=== PATIENT | female | born 1995 | race Caucasian/White ===

== ENCOUNTER 2018-10-30 19:26 | Inpatient (IN) | payer OTHER ==
[2018-10-30] MEDS ORDERED: Penicillin G Potassium 5 MILLUNITS in Sodium Chloride 0.9% 50 ML IV ONE (20:09)
[2018-10-30] MEDS ORDERED: Lactated Ringers 1,000 ML IV ONE ×2 (20:09→20:45)
[2018-10-30] MEDS ORDERED: Naloxone 0.4 MG/ML SDV IVPUSH PRN (20:45)
[2018-10-30] MEDS ORDERED: Acetaminophen 325 MG Tab PO PRN (20:45)
[2018-10-30] MEDS ORDERED: Ondansetron 4 MG/2 ML SDV IV PRN (20:45)
[2018-10-30] MEDS ORDERED: Sodium Chloride 0.9% 10 ML Syringe FLUSH PRN (20:45)
[2018-10-30] MEDS ORDERED: ePHEDrine 50 MG/ML SDV IVPUSH PRN ×2 (20:45)
[2018-10-30] MEDS ORDERED: diphenhydrAMINE 50 MG/ML SDV IVPUSH PRN ×2 (20:45)
--- NOTE | 2018-10-30 20:59 | PCM.LDHP ---
L&D History of Present Illness - General Date of Service: 10/30/18 Admit Problem/Dx: Patient Status Order with Admit Dx/Problem 10/30/18 20:45 Patient Status [ADT] Routine Admission Diagnosis/Problem Admission Diagnosis/Problem - Related Data Allergies/Adverse Reactions: Allergies Allergy/AdvReac Type Severity Reaction Status Date / Time No Known Allergies Allergy Verified 10/30/18 20:05 Home Medications: Home Meds Mv-Mn/Iron/FA/Herbal/Digestive [ One Tablet] 1 each PO DAILY 10/30/18 [ History] Past Medical History [employer] History: Reports: Psychiatric History: Reports: Anxiety, Depression Social & Family History - Family History Family Medical History: Noncontributory - Tobacco Use Smoking Status *Q: Current Every Day Smoker Years of Tobacco use: 5 Packs/Tins Daily: 0.5 Used Tobacco, but Quit: No - Recreational Drug Use Recreational Drug Use: No H&P Review of Systems - Review of Systems: Review Of Systems: See Below General: Reports: No Symptoms HEENT: Reports: No Symptoms Pulmonary: Reports: No Symptoms Cardiovascular: Reports: No Symptoms Gastrointestinal: Reports: No Symptoms Genitourinary: Reports: No Symptoms Musculoskeletal: Reports: No Symptoms Skin: Reports: No Symptoms Psychiatric: Reports: No Symptoms Neurological: Reports: No Symptoms Hematologic/Lymphatic: Reports: No Symptoms Immunologic: Reports: No Symptoms L&D Exam - Exam Exam: See Below - Vital Signs Vital Signs: Last Vital Signs Temp Pulse 84 10/30/18 19:36 Resp 20 10/30/18 19:36 BP 135/74 10/30/18 19:36 Pulse Ox 97 10/30/18 19:36 Weight: 77.111 kg - OB Specific Contraction Duration (sec): 40-60 Contraction Frequency (min): irregular Contraction Intensity: Mild to Moderate Movement: Active Heart Tones: Present Heart Rate (FHR) Variability: Moderate (6-25 bmp) Presentation: Vertex - Gallego Score Gallego Score Cervix Position: Anterior Gallego Score Consistency: Soft Gallego Score Effacement: >80% Gallego Score Dilation: 3-4 cm Gallego Score Infant's Station: -1 ,0 Gallego Score Total: 11 - Exam General: Alert, Oriented, Cooperative HEENT: PERRLA, Conjunctiva Clear, EACs Clear, EOMI, Hearing Intact, Mucosa Moist & [place], Nares Patent, Normal Nasal Septum, Posterior Pharynx Clear, TMs Clear Neck: Supple, Trachea Midline Lungs: Clear to Auscultation, Normal Respiratory Effort Cardiovascular: Regular Rate, Regular Rhythm GI/Abdominal Exam: Normal Bowel Sounds, Soft, Non-Tender, No Organomegaly, No Distention, No Abnormal Bruit, No Mass, Pelvis Stable Rectal Exam: Normal Exam, Normal Rectal Tone Genitourinary: Normal external exam, Normal bimanual exam, Normal speculum exam Back Exam: Normal Inspection, Full Range of Motion Extremities: Normal Inspection, Normal Range of Motion, Non-Tender, No Pedal Edema, Normal Capillary Refill Skin: Warm, Dry, Intact Neurological: Cranial Nerves Intact, Reflexes Equal Bilateral Psychiatric: Alert, Normal Affect, Normal Mood - Patient Data Lab Results Last 24 hrs: Laboratory Results - last 24 hr 10/30/18 Range/Units 19:37 Membrane Rupture Positive H (NEGATIVE) - Problem List (1) SNOMED Code(s): 02641509 ICD Code: Z34.90 - ENCNTR FOR SUPRVSN OF NORMAL , UNSP, UNSP TRIMESTER Status: Acute Current Visit: Yes Qualifiers: Weeks of gestation: 35 weeks Qualified Code(s): Z3A.35 - 35 weeks gestation of (2) Premature rupture of membranes SNOMED Code(s): 60070709 ICD Code: O42.90 - FLORENTIN ROM, 7TH0 BETW RUPT & ONST LABR, UNSP WEEKS OF GEST Status: Acute Priority: High Current Visit: Yes Qualifiers: PROM gestational age: -third trimester (3) Premature labor Status: Acute Current Visit: Yes Qualifiers: labor trimester: third trimester (4) GBS screening not performed SNOMED Code(s): 127077754 ICD Code: AWO8133 - Status: Acute Current Visit: Yes (5) Labor established SNOMED Code(s): 34102447 ICD Code: OQV2432 - Status: Acute Current Visit: Yes Problem List Initiated/Reviewed/Updated: Yes Orders Last 24hrs: Active Orders 24 hr Category Date Time Status Patient Status [ADT] Routine ADT 10/30/18 20:45 Active Ambulate [RC] PER UNIT ROUTINE Care 10/30/18 20:45 Active Communication Order [RC] ASDIRECTED Care 10/30/18 20:45 Active Communication Order [RC] ASDIRECTED Care 10/30/18 20:45 Active Communication Order [RC] ROUTINE Care 10/30/18 20:45 Active Communication Order [RC] ROUTINE Care 10/30/18 20:45 Active Communication Order [RC] ROUTINE Care 10/30/18 20:45 Active Dietary Supplements [RC] BIDMEALS Care 10/30/18 20:09 Active Heart Tones [RC] PER UNIT ROUTINE Care 10/30/18 20:45 Active Non Stress Test [RC] Click to Edit Care 10/30/18 20:45 Active Insert Urinary Catheter [OM.PC] ASDIRECTED Care 10/30/18 20:45 Ordered Local Anesthetic Infusion Pump [RC] ASDIRECTED Care 10/30/18 20:45 Active Notify Provider Vital Signs [RC] PRN Care 10/30/18 20:45 Active Notify Provider [RC] PRN Care 10/30/18 20:45 Active OB Check [OM.PC] Click to Edit Care 10/30/18 19:37 Ordered Oxygen Therapy [RC] ASDIRECTED Care 10/30/18 20:45 Active PCEA Epidural [RC] ASDIRECTED Care 10/30/18 20:45 Active PCEA Epidural [RC] ASDIRECTED Care 10/30/18 20:45 Active PCEA Epidural [RC] ASDIRECTED Care 10/30/18 20:46 Active Peripheral IV Care [RC] . DIRECTED Care 10/30/18 20:46 Active Pulse Oximetry [RC] ASDIRECTED Care 10/30/18 20:45 Active Up ad Verena [RC] ASDIRECTED Care 10/30/18 20:45 Active Urinary Catheter Assessment [RC] ASDIRECTED Care 10/30/18 20:46 Active VTE/DVT Education [RC] Click to Edit Care 10/30/18 20:48 Active Vital Signs [RC] PER UNIT ROUTINE Care 10/30/18 20:45 Active Vital Signs [RC] PER UNIT ROUTINE Care 10/30/18 20:45 Active CBC WITH AUTO DIFF [HEME] Urgent Lab 10/30/18 20:45 Ordered DRUG SCREEN, URINE [URCHEM] Routine Lab 10/30/18 20:45 Ordered UA W/MICROSCOPIC [URIN] Routine Lab 10/30/18 19:37 Ordered Acetaminophen [Tylenol] Med 10/30/18 20:45 Active 650 mg PO Q4H PRN Lactated Ringers [Ringers, Lactated] 1,000 ml Med 10/30/18 20:45 Active IV .BOLUS Lactated Ringers [Ringers, Lactated] 1,000 ml Med 10/30/18 21:00 Ordered IV ASDIRECTED Lactated Ringers [Ringers, Lactated] 1,000 ml [facility] 10/30/18 20:09 Active IV BOLUS Naloxone [Narcan] Med 10/30/18 20:45 Active 0.1 mg IVPUSH ASDIRECTED PRN Ondansetron [Zofran] Med 10/30/18 20:45 Active 4 mg IV Q4H PRN Oxytocin/Normal Saline [Pitocin in NS 20 Units/1,000 ML Med 10/30/18 21:00 Active ] 20 unit in 1,000 ml IV TITRATE Penicillin G Potassium [Pfizerpen] 2.5 millunits Med 10/30/18 00:00 Ordered Sodium Chloride 0.9% [Normal Saline] 50 ml IV Q4H Sodium Chloride 0.9% [Saline Flush] Med 10/30/18 20:45 Active 10 ml FLUSH ASDIRECTED PRN diphenhydrAMINE [Benadryl] Med 10/30/18 20:45 Active 25 mg IVPUSH Q6H PRN diphenhydrAMINE [Benadryl] [facility] 10/30/18 20:45 Active 50 mg IVPUSH Q6H PRN ePHEDrine [ePHEDrine sulfate] [facility] 10/30/18 20:45 Active 10 mg IVPUSH ASDIRECTED PRN ePHEDrine [ePHEDrine sulfate] [facility] 10/30/18 20:45 Active 10 mg IVPUSH ASDIRECTED PRN DVT/VTE Prophylaxis Reflex [OM.PC] Routine Oth 10/30/18 20:45 Ordered Epidural Catheter Management [OM.PC] Routine Oth 10/30/18 20:45 Ordered Epidural Catheter Management [OM.PC] Urgent Oth 10/30/18 20:45 Ordered Peripheral IV Insertion Pediatric [OM.PC] Routine Oth 10/30/18 20:45 Ordered Saline Lock Insert [OM.PC] Routine Oth 10/30/18 20:45 Ordered Resuscitation Status Routine Resus Stat 10/30/18 20:45 Ordered Medication Orders Acetaminophen (Tylenol) 650 mg PO Q4H PRN PRN Reason: Pain (Mild 1-3) and fever Diphenhydramine HCl (Benadryl) 25 mg IVPUSH Q6H PRN PRN Reason: Itching Diphenhydramine HCl (Benadryl) 50 mg IVPUSH Q6H PRN PRN Reason: Itching Ephedrine Sulfate (Ephedrine Sulfate) 10 mg IVPUSH ASDIRECTED PRN PRN Reason: Hypotension Ephedrine Sulfate (Ephedrine Sulfate) 10 mg IVPUSH ASDIRECTED PRN PRN Reason: Hypotension Lactated Ringer's (Ringers, Lactated) 1,000 mls @ 999 mls/hr IV BOLUS ONE Stop: 10/30/18 21:09 Last Admin: 10/30/18 20:24 Dose: 999 mls/hr Lactated Ringer's (Ringers, Lactated) 1,000 mls @ 999 mls/hr IV .BOLUS ONE Stop: 10/30/18 21:45 Oxytocin/Sodium Chloride (Pitocin In Ns 20 Units/1,000 Ml) 20 unit in 1,000 mls @ 6 mls/hr IV TITRATE LUISA; Protocol Penicillin G Potassium 2.5 (millunits/ Sodium Chloride) 50 mls @ 100 mls/hr IV Q4H LUISA Naloxone HCl (Narcan) 0.1 mg IVPUSH ASDIRECTED PRN PRN Reason: Oversedation Ondansetron HCl (Zofran) 4 mg IV Q4H PRN PRN Reason: Nausea/Vomiting Sodium Chloride (Saline Flush) 10 ml FLUSH ASDIRECTED PRN PRN Reason: Keep Vein Open Assessment/Plan Comment:: 10/30/2018 23 yo here at 35 2/7 gestational weeks came in to labor and delivery tonight after what she believes is SROM at 0930 earlier this am. Amnisure was positive SVE-3-4/90/-1 Caput felt, no membranes felt PPROM labor Unknown GBS Plan- Monitor for active labor Monitor FHTS PCN G for unknown GBS Pitocin per protocol to augment labor since SROM earlier this am Epidural for pain control Plan and anticipate a vaginal delivery
[2018-10-30] MEDS ORDERED: Lactated Ringers 1,000 ML IV SCH (21:00)
[2018-10-30] MEDS ORDERED: Ropivacaine 100 ML ONE (22:03)
[2018-10-30] MEDS ORDERED: Lidocaine 1% 50 ML MDV ONE (22:14)
[2018-10-30] MEDS ORDERED: ePHEDrine 50 MG/ML SDV ONE (22:16)
[2018-10-30] MEDS ORDERED: fentaNYL 100 MCG/2 ML SDV ONE (23:38)
[2018-10-31] MEDS ORDERED: Witch Hazel Medicated Pads 100/Jar TOP PRN (00:58)
[2018-10-31] MEDS ORDERED: Benzocaine 20% Top Spray 56 GM Bottle TOP PRN (00:58)
[2018-10-31] MEDS ORDERED: Docusate Sodium 100 MG Cap PO PRN (00:58)
[2018-10-31] MEDS ORDERED: Lanolin 100% Cream 40 GM Tube TOP PRN (00:58)
[2018-10-31] MEDS ORDERED: Acetaminophen 325 MG Tab, 50 Tab Bulk Bottle PO PRN (00:58)
[2018-10-31] MEDS ORDERED: Ibuprofen 200 MG Tab, 24 Tab Bulk Bottle PO PRN (00:58)
--- NOTE | 2018-10-31 01:11 | PCM.DEL ---
L & D Note - General Info Date of Service: 10/31/18 Mother's Due Date: 12/02/18 - Delivery Note Labor: Spontaneous Delivery Outcome: Livebirth Infant Delivery Method: Spontaneous Vaginal Delivery-Single Infant Delivery Mode: Spontaneous Presentation: Left Occiput Anterior (CRISTIAN) Nuchal Cord: None Anesthesia Type: Epidural Episiotomy Type: None Laceration: None Placenta: Intact, Spontaneous Cord: 3 Vessels Estimated Blood Loss: 250 Resuscitation Needed: No : Bulb Syringe, Stimulated, Warmed Score 1 min: 9 Score 5 min: 9 Second Stage Interventions: Reports: Second Nurse Assessed Progress of Descent, Second Nurse Reviewed Contraction Pattern, Second Nurse Reviewed Heart Tones, Encouragement Given, Pushing Effectively, Pushing, McRobert's Position Delivery Comments (Free Text/Narrative):: 10/31/2018 23 yo delivered a viable female infant at 35 3/7 gestational weeks on 10/31/2018 @ 0025 in CRISTIAN position over and intact perineum. was delivered and placed on prewarmed blanket on mothers abdomen, infant began to cry and pink in color, so delayed cord clamping was done for approximately 90 seconds before double clamping and cutting the cord. APGARS-9/9, weight-5lbs 1oz, length-17 inches, was covered with prewarmed blanket and brought directly skin to skin, was dried and kept warm. began to cry more vigorously and pink in color. Placenta then came spontaneous and intact with noted odor, three vessel cord noted, EBL-250ml, no lacerations noted of vagina, perineum, cervix, or rectum. Infant now remains skin to skin with mother both stable in labor and delivery room. Stages- [id number] - General Info Date of Service: 10/31/18 Functional Status: Reports: Pain Controlled - Review of Systems General: Reports: No Symptoms HEENT: Reports: No Symptoms Pulmonary: Reports: No Symptoms Cardiovascular: Reports: No Symptoms Gastrointestinal: Reports: No Symptoms Genitourinary: Reports: No Symptoms Musculoskeletal: Reports: No Symptoms Skin: Reports: No Symptoms Neurological: Reports: No Symptoms Psychiatric: Reports: No Symptoms - Patient Data Vitals - Most Recent: Last Vital Signs Temp 35.3 C 10/30/18 23:00 Pulse 87 10/30/18 23:00 Resp 18 10/30/18 23:00 BP 121/63 10/30/18 23:00 Pulse Ox 99 10/30/18 23:00 Weight - Most Recent: 77.111 kg I&O - Last 24 Hours: Intake & Output 10/30/18 10/30/18 10/31/18 14:59 22:59 06:59 Intake Total 2050 Output Total 400 Balance 2050 -400 Lab Results Last 24 Hours: Laboratory Results - last 24 hr 10/30/18 10/30/18 10/30/18 Range/Units 19:37 19:37 20:45 WBC (4.5-11.0) K/uL RBC (3.30-5.50) M/uL Hgb (12.0-15.0) g/dL Hct (36.0-48.0) % MCV (80-98) fL MCH (27-31) pg MCHC (32-36) % Plt Count (150-400) K/uL Neut % (Auto) (36-66) % Lymph % (Auto) (24-44) % [place] % (Auto) (2-6) % Eos % (Auto) (2-4) % Baso % (Auto) (0-1) % Urine Color Yellow Urine Appearance Clear Urine pH 7.0 (4.5-8.0) Ur Specific [place] 1.010 (1.008-1.030) Urine Protein Negative (NEGATIVE) mg/dL Urine Glucose (UA) Normal (NEGATIVE) mg/dL Urine Ketones Negative (NEGATIVE) mg/dL Urine Occult Blood Negative (NEGATIVE) Urine Nitrite Negative (NEGATIVE) Urine Bilirubin Negative (NEGATIVE) Urine Urobilinogen Normal (NORMAL) mg/dL Ur Leukocyte Esterase Negative (NEGATIVE) Urine RBC 0-5 (0-5) Urine WBC 0-5 (0-5) Ur Epithelial Cells Few Amorphous Sediment Not seen Urine Bacteria Not seen Urine Mucus Not seen Membrane Rupture Positive H (NEGATIVE) Urine Opiates Screen Negative (NEGATIVE) Ur Oxycodone Screen Negative (NEGATIVE) Urine Methadone Screen Negative (NEGATIVE) Ur Propoxyphene Screen Negative (NEGATIVE) Ur Barbiturates Screen Negative (NEGATIVE) Ur Tricyclics Screen Negative (NEGATIVE) Ur Phencyclidine Scrn Negative (NEGATIVE) Ur Amphetamine Screen Negative (NEGATIVE) U Methamphetamines Scrn Negative (NEGATIVE) Urine MDMA Screen Negative (NEGATIVE) U Benzodiazepines Scrn Negative (NEGATIVE) U Cocaine Metab Screen Negative (NEGATIVE) U Marijuana (THC) Screen Negative (NEGATIVE) 10/30/18 Range/Units 21:00 WBC 15.3 H (4.5-11.0) K/uL RBC 3.91 (3.30-5.50) M/uL Hgb 12.0 (12.0-15.0) g/dL Hct 35.3 L (36.0-48.0) % MCV 90 (80-98) fL MCH 31 (27-31) pg MCHC 34 (32-36) % Plt Count 351 (150-400) K/uL Neut % (Auto) 76 H (36-66) % Lymph % (Auto) 16 L (24-44) % [place] % (Auto) 7 H (2-6) % Eos % (Auto) 1 L (2-4) % Baso % (Auto) 0 (0-1) % Urine Color Urine Appearance Urine pH (4.5-8.0) Ur Specific [place] (1.008-1.030) Urine Protein (NEGATIVE) mg/dL Urine Glucose (UA) (NEGATIVE) mg/dL Urine Ketones (NEGATIVE) mg/dL Urine Occult Blood (NEGATIVE) Urine Nitrite (NEGATIVE) Urine Bilirubin (NEGATIVE) Urine Urobilinogen (NORMAL) mg/dL Ur Leukocyte Esterase (NEGATIVE) Urine RBC (0-5) Urine WBC (0-5) Ur Epithelial Cells Amorphous Sediment Urine Bacteria Urine Mucus Membrane Rupture (NEGATIVE) Urine Opiates Screen (NEGATIVE) Ur Oxycodone Screen (NEGATIVE) Urine Methadone Screen (NEGATIVE) Ur Propoxyphene Screen (NEGATIVE) Ur Barbiturates Screen (NEGATIVE) Ur Tricyclics Screen (NEGATIVE) Ur Phencyclidine Scrn (NEGATIVE) Ur Amphetamine Screen (NEGATIVE) U Methamphetamines Scrn (NEGATIVE) Urine MDMA Screen (NEGATIVE) U Benzodiazepines Scrn (NEGATIVE) U Cocaine Metab Screen (NEGATIVE) U Marijuana (THC) Screen (NEGATIVE) Med Orders - Current: Current Medications Acetaminophen (Tylenol) 650 mg PO Q4H PRN PRN Reason: Pain (Mild 1-3) and fever Acetaminophen (Tylenol Bulk Bottle) 325 mg PO Q4H PRN PRN Reason: Pain Benzocaine (Qtif-C-Pqvighp 20% [place]) 0 gm TOP Q4H PRN PRN Reason: Perineal Comfort Measure Diphenhydramine HCl (Benadryl) 25 mg IVPUSH Q6H PRN PRN Reason: Itching Diphenhydramine HCl (Benadryl) 50 mg IVPUSH Q6H PRN PRN Reason: Itching Docusate Sodium (Colace) 100 mg PO BID PRN PRN Reason: Constipation Emollient Ointment (Lansinoh Hpa) 1 gm TOP ASDIRECTED PRN PRN Reason: Sore Nipples Ephedrine Sulfate (Ephedrine Sulfate) 10 mg IVPUSH ASDIRECTED PRN PRN Reason: Hypotension Oxytocin/Sodium Chloride (Pitocin In Ns 20 Units/1,000 Ml) 20 unit in 1,000 mls @ 6 mls/hr IV TITRATE LUISA; Protocol Last Titration: 10/30/18 23:02 Dose: 4 munits/min, 12 mls/hr Penicillin G Potassium 2.5 (millunits/ Sodium Chloride) 50 mls @ 100 mls/hr IV Q4H LUISA Lactated Ringer's (Ringers, Lactated) 1,000 mls @ 125 mls/hr IV ASDIRECTED LUISA Last Admin: 10/30/18 21:41 Dose: 125 mls/hr Oxytocin/Sodium Chloride (Pitocin In Ns 20 Units/1,000 Ml) 20 unit in 1,000 mls @ 2,997 mls/hr IV ONETIME ONE; Protocol Stop: 10/31/18 01:22 Ibuprofen (Motrin Bulk Bottle) 600 mg PO Q6H PRN PRN Reason: Pain Naloxone HCl (Narcan) 0.1 mg IVPUSH ASDIRECTED PRN PRN Reason: Oversedation Ondansetron HCl (Zofran) 4 mg IV Q4H PRN PRN Reason: Nausea/Vomiting Sodium Chloride (Saline Flush) 10 ml FLUSH ASDIRECTED PRN PRN Reason: Keep Vein Open Witch [place] (Tucks) 1 pad TOP ASDIRECTED PRN PRN Reason: Hemorrhoids Discontinued Medications Ephedrine Sulfate (Ephedrine Sulfate) 10 mg IVPUSH ASDIRECTED PRN PRN Reason: Hypotension Ephedrine Sulfate (Ephedrine Sulfate) Confirm Administered Dose 50 mg .ROUTE .STK-MED ONE Stop: 10/30/18 22:17 Fentanyl (Sublimaze) Confirm Administered Dose 100 mcg .ROUTE .STK-MED ONE Stop: 10/30/18 23:39 Lactated Ringer's (Ringers, Lactated) 1,000 mls @ 999 mls/hr IV BOLUS ONE Stop: 10/30/18 21:09 Last Admin: 10/30/18 20:24 Dose: 999 mls/hr Penicillin G Potassium 5 (millunits/ Sodium Chloride) 50 mls @ 100 mls/hr IV ONETIME ONE Stop: 10/30/18 20:38 Last Admin: 10/30/18 20:36 Dose: 100 mls/hr Lactated Ringer's (Ringers, Lactated) 1,000 mls @ 999 mls/hr IV .BOLUS ONE Stop: 10/30/18 21:45 Ropivacaine (Naropin 0.2%) Confirm Administered Dose 100 mls @ as directed .ROUTE .STK-MED ONE Stop: 10/30/18 22:04 Lidocaine HCl (Xylocaine 1%) Confirm Administered Dose 100 ml .ROUTE .STK-MED ONE Stop: 10/30/18 22:15 Last Admin: 10/31/18 00:52 Dose: 50 ml - Exam General: Alert, Oriented, Cooperative HEENT: Pupils Equal, Pupils Reactive, EOMI, Mucous Membr. Moist/[place] Neck: Supple Lungs: Clear to Auscultation, Normal Respiratory Effort Cardiovascular: Regular Rate, Regular Rhythm GI/Abdominal Exam: Normal Bowel Sounds, Soft, Non-Tender, No Organomegaly, No Distention, No Abnormal Bruit, No Mass, Pelvis Stable (Female) Exam: Normal External Exam, Normal Speculum Exam, Normal Bimanual Exam Back Exam: Normal Inspection, Full Range of Motion Extremities: Normal Inspection, Normal Range of Motion, Non-Tender, No Pedal Edema, Normal Capillary Refill Skin: Warm, Dry, Intact Neurological: No New Focal Deficit Psy/Mental Status: Alert, Normal Affect, Normal Mood - Problem List & Annotations (1) SNOMED Code(s): 92896755 Code(s): Z34.90 - ENCNTR FOR SUPRVSN OF NORMAL , UNSP, UNSP TRIMESTER Status: Acute Current Visit: Yes Qualifiers: Weeks of gestation: 35 weeks Qualified Code(s): Z3A.35 - 35 weeks gestation of (2) Premature rupture of membranes SNOMED Code(s): 83264673 Code(s): O42.90 - FLORENTIN ROM, 7TH0 BETW RUPT & ONST LABR, UNSP WEEKS OF GEST Status: Acute Priority: High Current Visit: Yes Qualifiers: PROM gestational age: -third trimester (3) Premature labor Status: Acute Current Visit: Yes Qualifiers: labor trimester: third trimester (4) GBS screening not performed SNOMED Code(s): 340739600 Code(s): TTA4110 - Status: Acute Current Visit: Yes (5) Labor established SNOMED Code(s): 98016205 Code(s): ZDX1652 - Status: Acute Current Visit: Yes (6) Prolonged rupture of membranes, delivered SNOMED Code(s): 19165603, 207731187 Code(s): ZUD2500 - Status: Acute Current Visit: Yes (7) Normal vaginal delivery SNOMED Code(s): 05294598, 984404402 Code(s): O80 - ENCOUNTER FOR FULL-TERM UNCOMPLICATED DELIVERY Status: Acute Current Visit: Yes (8) delivery, delivered SNOMED Code(s): 293724091, 044807505 Code(s): O60.10X0 - LABOR W DELIVERY, UNSP TRIMESTER, UNSP Status: Acute Current Visit: Yes - Problem List Review Problem List Initiated/Reviewed/Updated: Yes - My Orders Last 24 Hours: My Active Orders 10/30/18 19:37 OB Check [OM.PC] Click to Edit 10/30/18 20:09 Dietary Supplements [RC] BIDMEALS 10/30/18 20:45 Patient Status [ADT] Routine Ambulate [RC] PER UNIT ROUTINE Communication Order [RC] ASDIRECTED Communication Order [RC] ASDIRECTED Communication Order [RC] ROUTINE Communication Order [RC] ROUTINE Communication Order [RC] ROUTINE Insert Urinary Catheter [OM.PC] ASDIRECTED Local Anesthetic Infusion Pump [RC] ASDIRECTED Notify Provider Vital Signs [RC] PRN Notify Provider [RC] PRN Oxygen Therapy [RC] ASDIRECTED PCEA Epidural [RC] ASDIRECTED Pulse Oximetry [RC] ASDIRECTED Up ad Verena [RC] ASDIRECTED Vital Signs [RC] PER UNIT ROUTINE Acetaminophen [Tylenol] 650 mg PO Q4H PRN Naloxone [Narcan] 0.1 mg IVPUSH ASDIRECTED PRN Ondansetron [Zofran] 4 mg IV Q4H PRN Sodium Chloride 0.9% [Saline Flush] 10 ml FLUSH ASDIRECTED PRN diphenhydrAMINE [Benadryl] 25 mg IVPUSH Q6H PRN diphenhydrAMINE [Benadryl] 50 mg IVPUSH Q6H PRN ePHEDrine [ePHEDrine sulfate] 10 mg IVPUSH ASDIRECTED PRN DVT/VTE Prophylaxis Reflex [OM.PC] Routine Epidural Catheter Management [OM.PC] Routine Epidural Catheter Management [OM.PC] Urgent Peripheral IV Insertion Pediatric [OM.PC] Routine Saline Lock Insert [OM.PC] Routine Resuscitation Status Routine 10/30/18 20:46 Peripheral IV Care [RC] . DIRECTED Urinary Catheter Assessment [RC] ASDIRECTED 10/30/18 20:48 VTE/DVT Education [RC] Click to Edit 10/30/18 21:00 Lactated Ringers [Ringers, Lactated] 1,000 ml IV ASDIRECTED Oxytocin/Normal Saline [Pitocin in NS 20 Units/1,000 ML] 20 unit in 1,000 ml IV TITRATE 10/31/18 00:58 Patient Status [ADT] Routine Vital Signs [RC] PFP Acetaminophen [Tylenol Bulk Bottle] 325 mg PO Q4H PRN Benzocaine [Helm-Q-Hilekmx 20% [place]] See Dose Instructions TOP Q4H PRN Docusate Sodium [Colace] 100 mg PO BID PRN Ibuprofen [Motrin Bulk Bottle] 600 mg PO Q6H PRN Lanolin [Lansinoh HPA] 1 gm TOP ASDIRECTED PRN Witch [place] [Tucks] 1 pad TOP ASDIRECTED PRN Assess Lochia [WOMSER] Per Unit Routine Assess Uterine Involution [WOMSER] Per Unit Routine 10/31/18 01:00 Perineal Care [OM.PC] Per Unit Routine 10/31/18 01:02 Oxytocin/Normal Saline [Pitocin in NS 20 Units/1,000 ML] 20 unit in 1,000 ml IV ONETIME 10/31/18 Breakfast Regular Diet [DIET] 11/01/18 06:00 CBC WITH AUTO DIFF [HEME] Routine - Assessment Assessment:: 10/31/2018 23 yo delivered at 35 3/7 GBS unknown Prolonged rupture of membranes Labs-O positive, Hep B neg, Hep C neg, HIV neg, RPR nonreactive, Rubella nonimmune, GBS unknown - Plan Plan:: 10/30/2018 23 yo here at 35 2/7 gestational weeks came in to labor and delivery tonight after what she believes is SROM at 0930 earlier this am. Amnisure was positive SVE-3-/-1 Caput felt, no membranes felt PPROM labor Unknown GBS Plan- Monitor for active labor Monitor FHTS PCN G for unknown GBS Pitocin per protocol to augment labor since SROM earlier this am Epidural for pain control Plan and anticipate a vaginal delivery 10/31/2018 Routine cares Encourage and support Routine vital signs Rocephin 2 grams now for prolonged rupture of membranes GBS unknown so will stay at least 48hrs
[2018-10-31] MEDS ORDERED: cefTRIAXone 2 GM in Sodium Chloride 0.9% 50 ML IV ONE (01:26)
--- NOTE | 2018-10-31 01:36 | ANES ---
DATE OF SERVICE: 10/30/2018 INDICATIONS: I was called by the OB Department this evening for a young 23-year-old female requesting a labor epidural for active labor. I was at the bedside at approximately 2135 hours. Brief history and physical was done with the patient. The patient stated that she has had a normal . She has no bleeding disorders and is not on any blood thinners. No heart valve issues like I said normal . Platelet count was 351. Risks and benefits were reviewed with the patient. The patient verbalized her understanding and wishes to proceed with the labor epidural today. DESCRIPTION OF PROCEDURE: The patient was then sat at the edge of the bed. Betadine prep x3 to the lumbar region was done. Sterile drape was placed. Lidocaine skin wheal and deep was done. A 17-gauge Tuohy needle was inserted at approximately the L4-L5 position. Loss of resistance was achieved at approximately 7 cm. Negative paresthesia, negative heme, and negative CSF were noted. Catheter was then easily threaded. Tuohy needle was withdrawn and the catheter was pulled back to approximately 15 cm and secured. Once the catheter was completely secured, I did do a 3 mL test dose. The patient then was laid in the supine position with head of bed slightly elevated and left uterine displacement. Several minutes after the test dose, the patient showed no signs of IV injection of local or subarachnoid injection of local. I then proceeded to give the patient 12 mL of 0.2% ropivacaine bolus via the epidural and started her on a 0.2% ropivacaine drip at 12 mL an hour. The patient tolerated the procedure without difficulty. Please refer to the nurse's notes for vital signs. Blood pressure was good after the bolus. The patient was starting to feel some relief upon leaving and was talking with her significant other. We will continue to monitor the patient as needed. Benjie Rae CRNA /[id number]
[2018-10-31] MEDS: Penicillin G Potassium 2.5 MILLUNITS in Sodium Chloride 0.9% 50 ML IV SCH ×3 (01:40→18:22)
--- NOTE | 2018-11-01 08:19 | PCM.PNPP ---
- General Info Date of Service: 11/01/18 Functional Status: Reports: Pain Controlled - Review of Systems General: Reports: No Symptoms HEENT: Reports: No Symptoms Pulmonary: Reports: No Symptoms Cardiovascular: Reports: No Symptoms Gastrointestinal: Reports: No Symptoms Genitourinary: Reports: No Symptoms Musculoskeletal: Reports: No Symptoms Skin: Reports: No Symptoms Neurological: Reports: No Symptoms Psychiatric: Reports: No Symptoms - General Info Date of Service: 11/01/18 - Patient Data Vital Signs - Most Recent: Last Vital Signs Temp 36.6 C 11/01/18 07:14 Pulse 70 11/01/18 07:14 Resp 18 11/01/18 07:14 BP 119/58 L 11/01/18 07:14 Pulse Ox 98 11/01/18 07:14 Weight - Most Recent: 77.111 kg Lab Results - Last 24 Hours: Laboratory Results - last 24 hr 11/01/18 Range/Units 06:30 WBC 13.1 H (4.5-11.0) K/uL RBC 3.41 (3.30-5.50) M/uL Hgb 10.6 L (12.0-15.0) g/dL Hct 31.4 L (36.0-48.0) % MCV 92 (80-98) fL MCH 31 (27-31) pg MCHC 34 (32-36) % Plt Count 291 (150-400) K/uL Neut % (Auto) 58 (36-66) % Lymph % (Auto) 30 (24-44) % Tate % (Auto) 9 H (2-6) % Eos % (Auto) 3 (2-4) % Baso % (Auto) 0 (0-1) % Med Orders - Current: Current Medications Acetaminophen (Tylenol) 650 mg PO Q4H PRN PRN Reason: Pain (Mild 1-3) and fever Acetaminophen (Tylenol Bulk Bottle) 325 mg PO Q4H PRN PRN Reason: Pain Last Admin: 10/31/18 02:50 Dose: 325 mg Benzocaine (Fdid-H-Pdzvexm 20% [place]) 0 gm TOP Q4H PRN PRN Reason: Perineal Comfort Measure Last Admin: 10/31/18 02:49 Dose: 1 spray Diphenhydramine HCl (Benadryl) 25 mg IVPUSH Q6H PRN PRN Reason: Itching Diphenhydramine HCl (Benadryl) 50 mg IVPUSH Q6H PRN PRN Reason: Itching Docusate Sodium (Colace) 100 mg PO BID PRN PRN Reason: Constipation Emollient Ointment (Lansinoh Hpa) 1 gm TOP ASDIRECTED PRN PRN Reason: Sore Nipples Last Admin: 10/31/18 02:48 Dose: 1 applic Ephedrine Sulfate (Ephedrine Sulfate) 10 mg IVPUSH ASDIRECTED PRN PRN Reason: Hypotension Oxytocin/Sodium Chloride (Pitocin In Ns 20 Units/1,000 Ml) 20 unit in 1,000 mls @ 6 mls/hr IV TITRATE LUISA; Protocol Last Titration: 10/30/18 23:02 Dose: 4 munits/min, 12 mls/hr Lactated Ringer's (Ringers, Lactated) 1,000 mls @ 125 mls/hr IV ASDIRECTED LUISA Last Admin: 10/30/18 21:41 Dose: 125 mls/hr Ibuprofen (Motrin Bulk Bottle) 600 mg PO Q6H PRN PRN Reason: Pain Last Admin: 10/31/18 02:50 Dose: 600 mg Naloxone HCl (Narcan) 0.1 mg IVPUSH ASDIRECTED PRN PRN Reason: Oversedation Ondansetron HCl (Zofran) 4 mg IV Q4H PRN PRN Reason: Nausea/Vomiting Sodium Chloride (Saline Flush) 10 ml FLUSH ASDIRECTED PRN PRN Reason: Keep Vein Open Witlinda Dawson (Tucks) 1 pad TOP ASDIRECTED PRN PRN Reason: Hemorrhoids Last Admin: 10/31/18 02:48 Dose: 1 pad Discontinued Medications Ephedrine Sulfate (Ephedrine Sulfate) 10 mg IVPUSH ASDIRECTED PRN PRN Reason: Hypotension Ephedrine Sulfate (Ephedrine Sulfate) Confirm Administered Dose 50 mg .ROUTE .STK-MED ONE Stop: 10/30/18 22:17 Last Admin: 10/31/18 01:40 Dose: Not Given Fentanyl (Sublimaze) Confirm Administered Dose 100 mcg .ROUTE .STK-MED ONE Stop: 10/30/18 23:39 Lactated Ringer's (Ringers, Lactated) 1,000 mls @ 999 mls/hr IV BOLUS ONE Stop: 10/30/18 21:09 Last Admin: 10/30/18 20:24 Dose: 999 mls/hr Penicillin G Potassium 5 (millunits/ Sodium Chloride) 50 mls @ 100 mls/hr IV ONETIME ONE Stop: 10/30/18 20:38 Last Admin: 10/30/18 20:36 Dose: 100 mls/hr Lactated Ringer's (Ringers, Lactated) 1,000 mls @ 999 mls/hr IV .BOLUS ONE Stop: 10/30/18 21:45 Last Admin: 10/31/18 01:40 Dose: Not Given Penicillin G Potassium 2.5 (millunits/ Sodium Chloride) 50 mls @ 100 mls/hr IV Q4H LUISA Last Admin: 10/31/18 18:22 Dose: Not Given Ropivacaine (Naropin 0.2%) Confirm Administered Dose 100 mls @ as directed .ROUTE .STK-MED ONE Stop: 10/30/18 22:04 Oxytocin/Sodium Chloride (Pitocin In Ns 20 Units/1,000 Ml) 20 unit in 1,000 mls @ 2,997 mls/hr IV ONETIME ONE; Protocol Stop: 10/31/18 01:22 Last Admin: 10/31/18 02:54 Dose: Not Given Ceftriaxone Sodium 2 gm/ (Sodium Chloride) 50 mls @ 100 mls/hr IV ONETIME ONE Stop: 10/31/18 01:55 Last Admin: 10/31/18 02:48 Dose: 100 mls/hr Lidocaine HCl (Xylocaine 1%) Confirm Administered Dose 100 ml .ROUTE .STK-MED ONE Stop: 10/30/18 22:15 Last Admin: 10/31/18 00:52 Dose: 50 ml - Interaction Disposition, : [place] in Room with Family Infant Interaction: Holding Infant Feeding: Attempted ; Nursed Fair/Poor (supplementing with S& S) Support Person: Significant Other - Recovery Exam Fundal Tone: Firm Fundal Level: 1 Fingerbreadths Below Umbilicus Fundal Placement: Midline Lochia Amount: Small Lochia Color: Rubra/Red Urinary Elimination: Voided - Exam General: Alert, Oriented, Cooperative HEENT: Pupils Equal Neck: Supple Lungs: Clear to Auscultation, Normal Respiratory Effort Cardiovascular: Regular Rate, Regular Rhythm GI/Abdominal Exam: Normal Bowel Sounds, Soft, Non-Tender, No Organomegaly, No Distention, No Abnormal Bruit, No Mass, Pelvis Stable Extremities: Normal Inspection, Normal Range of Motion, Non-Tender, No Pedal Edema, Normal Capillary Refill Skin: Warm, Dry, Intact Neurological: No New Focal Deficit Psy/Mental Status: Alert, Normal Affect, Normal Mood - Problem List & Annotations (1) SNOMED Code(s): 90542854 Code(s): Z34.90 - ENCNTR FOR SUPRVSN OF NORMAL , UNSP, UNSP TRIMESTER Status: Acute Current Visit: Yes Qualifiers: Weeks of gestation: 35 weeks Qualified Code(s): Z3A.35 - 35 weeks gestation of (2) Premature rupture of membranes SNOMED Code(s): 11403323 Code(s): O42.90 - FLORENTIN ROM, 7TH0 BETW RUPT & ONST LABR, UNSP WEEKS OF GEST Status: Acute Priority: High Current Visit: Yes Qualifiers: PROM gestational age: -third trimester (3) Premature labor Status: Acute Current Visit: Yes Qualifiers: labor trimester: third trimester (4) GBS screening not performed SNOMED Code(s): 232225388 Code(s): NBT1559 - Status: Acute Current Visit: Yes (5) Labor established SNOMED Code(s): 89146396 Code(s): WVO3768 - Status: Acute Current Visit: Yes (6) Prolonged rupture of membranes, delivered SNOMED Code(s): 78430881, 399050625 Code(s): UKR9281 - Status: Acute Current Visit: Yes (7) Normal vaginal delivery SNOMED Code(s): 66722018, 893572606 Code(s): O80 - ENCOUNTER FOR FULL-TERM UNCOMPLICATED DELIVERY Status: Acute Current Visit: Yes (8) delivery, delivered SNOMED Code(s): 162972714, 812827733 Code(s): O60.10X0 - LABOR W DELIVERY, UNSP TRIMESTER, UNSP Status: Acute Current Visit: Yes - Problem List Review Problem List Initiated/Reviewed/Updated: Yes - My Orders Last 24 Hours: My Active Orders 10/31/18 Breakfast Regular Diet [DIET] - Assessment Assessment:: 10/31/2018 23 yo delivered at 35 3/7 GBS unknown Prolonged rupture of membranes Labs-O positive, Hep B neg, Hep C neg, HIV neg, RPR nonreactive, Rubella nonimmune, GBS unknown 11/01/2018 of at 35 3/7 day one fair-using S&S everytime, struggling with latch Fundus firm and bleeding decreasing Voiding and passing gas - Plan Plan:: 10/30/2018 23 yo here at 35 2/7 gestational weeks came in to labor and delivery tonight after what she believes is SROM at 0930 earlier this am. Amnisure was positive SVE-3-/-1 Caput felt, no membranes felt PPROM labor Unknown GBS Plan- Monitor for active labor Monitor FHTS PCN G for unknown GBS Pitocin per protocol to augment labor since SROM earlier this am Epidural for pain control Plan and anticipate a vaginal delivery 10/31/2018 Routine cares Encourage and support Routine vital signs Rocephin 2 grams now for prolonged rupture of membranes GBS unknown so will stay at least 48hrs 11/01/2018 Continue routine cares Continue to encourage and support Discharge home at 48-72 hours, but may have to stay due to prematurity
[2018-11-01] MEDS ORDERED: Measles, Mumps & Rubella Vaccine 0.5 ML SDV SUBCUT ONE (14:00)
--- NOTE | 2018-11-02 10:04 | PCM.PNPP ---
- General Info Date of Service: 11/02/18 Functional Status: Reports: Pain Controlled - Review of Systems General: Reports: No Symptoms HEENT: Reports: No Symptoms Pulmonary: Reports: No Symptoms Cardiovascular: Reports: No Symptoms Gastrointestinal: Reports: No Symptoms Genitourinary: Reports: No Symptoms Musculoskeletal: Reports: No Symptoms Skin: Reports: No Symptoms Neurological: Reports: No Symptoms Psychiatric: Reports: No Symptoms - General Info Date of Service: 11/02/18 - Patient Data Vital Signs - Most Recent: Last Vital Signs Temp 97.8 F 11/02/18 08:25 Pulse 64 11/02/18 08:25 Resp 18 11/02/18 08:25 BP 118/50 L 11/02/18 08:25 Pulse Ox 99 11/02/18 08:25 Weight - Most Recent: 170 lb 0.01 oz I&O - Last 24 Hours: Intake & Output 11/01/18 11/02/18 11/02/18 22:59 06:59 14:59 Intake Total 700 Balance 700 Med Orders - Current: Current Medications Acetaminophen (Tylenol) 650 mg PO Q4H PRN PRN Reason: Pain (Mild 1-3) and fever Acetaminophen (Tylenol Bulk Bottle) 325 mg PO Q4H PRN PRN Reason: Pain Last Admin: 10/31/18 02:50 Dose: 325 mg Benzocaine (Jidv-Y-Lasmiof 20% [place]) 0 gm TOP Q4H PRN PRN Reason: Perineal Comfort Measure Last Admin: 10/31/18 02:49 Dose: 1 spray Diphenhydramine HCl (Benadryl) 25 mg IVPUSH Q6H PRN PRN Reason: Itching Diphenhydramine HCl (Benadryl) 50 mg IVPUSH Q6H PRN PRN Reason: Itching Docusate Sodium (Colace) 100 mg PO BID PRN PRN Reason: Constipation Emollient Ointment (Lansinoh Hpa) 1 gm TOP ASDIRECTED PRN PRN Reason: Sore Nipples Last Admin: 10/31/18 02:48 Dose: 1 applic Ephedrine Sulfate (Ephedrine Sulfate) 10 mg IVPUSH ASDIRECTED PRN PRN Reason: Hypotension Oxytocin/Sodium Chloride (Pitocin In Ns 20 Units/1,000 Ml) 20 unit in 1,000 mls @ 6 mls/hr IV TITRATE LUISA; Protocol Last Titration: 10/30/18 23:02 Dose: 4 munits/min, 12 mls/hr Lactated Ringer's (Ringers, Lactated) 1,000 mls @ 125 mls/hr IV ASDIRECTED LUISA Last Admin: 10/30/18 21:41 Dose: 125 mls/hr Ibuprofen (Motrin Bulk Bottle) 600 mg PO Q6H PRN PRN Reason: Pain Last Admin: 10/31/18 02:50 Dose: 600 mg Naloxone HCl (Narcan) 0.1 mg IVPUSH ASDIRECTED PRN PRN Reason: Oversedation Ondansetron HCl (Zofran) 4 mg IV Q4H PRN PRN Reason: Nausea/Vomiting Sodium Chloride (Saline Flush) 10 ml FLUSH ASDIRECTED PRN PRN Reason: Keep Vein Open Witlinda Dawson (Tucks) 1 pad TOP ASDIRECTED PRN PRN Reason: Hemorrhoids Last Admin: 10/31/18 02:48 Dose: 1 pad Discontinued Medications Ephedrine Sulfate (Ephedrine Sulfate) 10 mg IVPUSH ASDIRECTED PRN PRN Reason: Hypotension Ephedrine Sulfate (Ephedrine Sulfate) Confirm Administered Dose 50 mg .ROUTE .STK-MED ONE Stop: 10/30/18 22:17 Last Admin: 10/31/18 01:40 Dose: Not Given Fentanyl (Sublimaze) Confirm Administered Dose 100 mcg .ROUTE .STK-MED ONE Stop: 10/30/18 23:39 Lactated Ringer's (Ringers, Lactated) 1,000 mls @ 999 mls/hr IV BOLUS ONE Stop: 10/30/18 21:09 Last Admin: 10/30/18 20:24 Dose: 999 mls/hr Penicillin G Potassium 5 (millunits/ Sodium Chloride) 50 mls @ 100 mls/hr IV ONETIME ONE Stop: 10/30/18 20:38 Last Admin: 10/30/18 20:36 Dose: 100 mls/hr Lactated Ringer's (Ringers, Lactated) 1,000 mls @ 999 mls/hr IV .BOLUS ONE Stop: 10/30/18 21:45 Last Admin: 10/31/18 01:40 Dose: Not Given Penicillin G Potassium 2.5 (millunits/ Sodium Chloride) 50 mls @ 100 mls/hr IV Q4H LUISA Last Admin: 10/31/18 18:22 Dose: Not Given Ropivacaine (Naropin 0.2%) Confirm Administered Dose 100 mls @ as directed .ROUTE .STK-MED ONE Stop: 10/30/18 22:04 Oxytocin/Sodium Chloride (Pitocin In Ns 20 Units/1,000 Ml) 20 unit in 1,000 mls @ 2,997 mls/hr IV ONETIME ONE; Protocol Stop: 10/31/18 01:22 Last Admin: 10/31/18 02:54 Dose: Not Given Ceftriaxone Sodium 2 gm/ (Sodium Chloride) 50 mls @ 100 mls/hr IV ONETIME ONE Stop: 10/31/18 01:55 Last Admin: 10/31/18 02:48 Dose: 100 mls/hr Lidocaine HCl (Xylocaine 1%) Confirm Administered Dose 100 ml .ROUTE .STK-MED ONE Stop: 10/30/18 22:15 Last Admin: 10/31/18 00:52 Dose: 50 ml Measles/Mumps/Rubella Vaccine Live (M-M-R Ii Vaccine) 0.5 ml SUBCUT .ONCE ONE Stop: 11/01/18 14:01 Last Admin: 11/01/18 14:49 Dose: 0.5 ml - Infant Interaction Infant Disposition, : [place] in Room with Family Infant Interaction: Holding Infant Feeding: Attempted ; Nursed Fair/Poor (supplementing with S& S), Difficulty with Latch-on, Other (see below) (pumping and bottling breast milk) Support Person: Significant Other - Recovery Exam Fundal Tone: Firms with Massage Fundal Level: 3 Fingerbreadths Below Umbilicus Fundal Placement: Midline Lochia Amount: Small Lochia Color: Rubra/Red Perineum Description: Intact, Minimal Bruising/Swelling Episiotomy/Laceration: None Bladder Status: Nonpalpable Urinary Elimination: Voided - Exam General: Alert, Oriented HEENT: Pupils Equal Neck: Supple Lungs: Clear to Auscultation, Normal Respiratory Effort Cardiovascular: Regular Rate, Regular Rhythm GI/Abdominal Exam: Normal Bowel Sounds, Soft, Non-Tender, No Organomegaly, No Distention, No Abnormal Bruit, No Mass, Pelvis Stable Extremities: Normal Inspection, Normal Range of Motion, Non-Tender, No Pedal Edema, Normal Capillary Refill Skin: Warm, Dry, Intact Wound/Incisions: Healing Well Neurological: No New Focal Deficit Psy/Mental Status: Alert, Normal Affect, Normal Mood - Problem List & Annotations (1) SNOMED Code(s): 15481853 Code(s): Z34.90 - ENCNTR FOR SUPRVSN OF NORMAL , UNSP, UNSP TRIMESTER Status: Acute Current Visit: Yes Qualifiers: Weeks of gestation: 35 weeks Qualified Code(s): Z3A.35 - 35 weeks gestation of (2) Premature labor Status: Acute Current Visit: Yes Qualifiers: labor trimester: third trimester (3) GBS screening not performed SNOMED Code(s): 878656099 Code(s): VVD9549 - Status: Acute Current Visit: Yes (4) Prolonged rupture of membranes, delivered SNOMED Code(s): 87073731, 288738388 Code(s): WJN9951 - Status: Acute Current Visit: Yes (5) Normal vaginal delivery SNOMED Code(s): 84246920, 264838766 Code(s): O80 - ENCOUNTER FOR FULL-TERM UNCOMPLICATED DELIVERY Status: Acute Current Visit: Yes (6) delivery, delivered SNOMED Code(s): 346585854, 888486796 Code(s): O60.10X0 - LABOR W DELIVERY, UNSP TRIMESTER, UNSP Status: Acute Current Visit: Yes - Problem List Review Problem List Initiated/Reviewed/Updated: Yes - My Orders Last 24 Hours: My Active Orders 11/01/18 13:22 Vaccines to be Administered [RC] PER UNIT ROUTINE - Assessment Assessment:: 10/31/2018 23 yo delivered at 35 3/7 GBS unknown Prolonged rupture of membranes Labs-O positive, Hep B neg, Hep C neg, HIV neg, RPR nonreactive, Rubella nonimmune, GBS unknown 11/01/2018 of at 35 3/7 day one fair-using S&S everytime, struggling with latch Fundus firm and bleeding decreasing Voiding and passing gas 11/02/18 PPD 2 Feeling great Mood happy not so good, is pumping and bottle feeding, does offer breast at each feeding first voiding, flow light no fever ready for discharge - Plan Plan:: 10/30/2018 23 yo here at 35 2/7 gestational weeks came in to labor and delivery tonight after what she believes is SROM at 0930 earlier this am. Amnisure was positive SVE-3-/-1 Caput felt, no membranes felt PPROM labor Unknown GBS Plan- Monitor for active labor Monitor FHTS PCN G for unknown GBS Pitocin per protocol to augment labor since SROM earlier this am Epidural for pain control Plan and anticipate a vaginal delivery 10/31/2018 Routine cares Encourage and support Routine vital signs Rocephin 2 grams now for prolonged rupture of membranes GBS unknown so will stay at least 48hrs 11/01/2018 Continue routine cares Continue to encourage and support Discharge home at 48-72 hours, but may have to stay due to prematurity 11/02/18 Discharge today 6 week post visit with me baby will stay and she can continue to get support for
== END 2018-11-02 15:30 | disposition home or self-care (01) | DRG 805 ==
LOC: JP.OBCHECK 19:26 → JP.OB 20:41 → OBSVTOIN 10-31 00:25 → JP.MS 10-31 00:45
PROVIDERS: ADMIT Advanced Practice Midwife; ATTEND Advanced Practice Midwife
PROC: 10E0XZZ Delivery of Products of Conception, External Approach (ICD-10-PCS; principal; 2018-10-31)
PROC: 00HU33Z Insertion of Infusion Device into Spinal Canal, Percutaneous Approach (ICD-10-PCS; 2018-10-31)
PROC: 3E0R3BZ Introduction of Anesthetic Agent into Spinal Canal, Percutaneous Approach (ICD-10-PCS; 2018-10-31)
DX: O42.013 Preterm premature rupture of membranes, onset of labor within 24 hours of rupture, third trimester (principal); O60.14X0 Preterm labor third trimester with preterm delivery third trimester, not applicable or unspecified; Z37.0 Single live birth; O99.334 Smoking (tobacco) complicating childbirth; Z3A.35 35 weeks gestation of pregnancy
CPT/HCPCS: 36415; 51702; 59409; 80305-QW; 81001; 84112; 85025; 88307; 90471; 90707; 99211; A9270-GY; J0696; J2001; J2540; J2590; J2795; J3010; J7050; J7120

== ENCOUNTER 2024-11-10 14:49 | Emergency (ER) | payer BC, OTHER ==
[2024-11-10 15:43] LABS: BASE EXCESS VENOUS -0.4 mm/L; BICARBONATE,VENOUS 22.1 mmol/L; O2 SATURATION VENOUS 95.6; OXYHEMOGLOBIN 91.3 %; PCO2 VENOUS 31.7 mm/Hg; PH,VENOUS 7.457 (7.350-7.450); PO2 VENOUS 68.9 mm/Hg; TOTAL HEMOGLOBIN 15.3 g/dL (12.0-16.0)
[2024-11-10 15:46] LABS: BASOPHILS ABSOLUTE AUTO 0.07 K/uL (0.00-0.10); BASOPHILS PERCENT AUTO 0.8 % (0.1-1.3); EOSINOPHILS ABSOLUTE AUTO 0.23 K/uL (0.00-0.40); EOSINOPHILS PERCENT AUTO 2.5 % (0.0-5.4); IMMATURE GRAN ABSOLUTE AUTO 0.04 K/uL (0.00-0.23); IMMATURE GRAN PERCENT AUTO 0.4 % (0.0-0.7); LYMPHOCYTES ABSOLUTE AUTO 3.22 K/uL (0.8-3.3); LYMPHOCYTES PERCENT AUTO 35.5 % (11.4-47.7); MONOCYTES ABSOLUTE AUTO 0.73 K/uL (0.20-0.90); MONOCYTES PERCENT AUTO 8.0 % (3.3-12.6); NEUTROPHILS ABSOLUTE AUTO 4.79 K/uL (1.0-7.6); NEUTROPHILS PERCENT AUTO 52.8 % (40.0-78.1); PLATELET COUNT,PLT 326 K/uL (130-375); RED BLOOD CELL COUNT 4.70 M/uL (3.77-5.24); WHITE BLOOD CELL COUNT,WBC 9.1 K/uL (3.2-11.0)
[2024-11-10 16:10] LABS: A/G RATIO 0.9 (1.2-2.2); ALANINE AMINOTRANSFERASE,ALT 21 U/L (12-78); ASPARTATE AMNIOTRANSFERASE,AST 15 U/L (15-37); BILIRUBIN TOTAL 0.3 mg/dL (0.2-1.0); BLOOD UREA NITROGEN,BUN 10 mg/dL (7-18); CARBON DIOXIDE,CO2 25 mmol/L (21-32); CHLORIDE,CL 105 mmol/L (100-108); CREATININE 0.8 mg/dL (0.6-1.0); EST CRCL DRUG DOSING (CG) 92.53 mL/min; ESTIMATED GFR 102 mL/min (>60); GLUCOSE RANDOM 109 mg/dL (74-106); POTASSIUM,K 3.6 mmol/L (3.6-5.2); PROTEIN TOTAL,TP 7.8 g/dL (6.4-8.2); SODIUM,NA 138 mmol/L (140-148); TROPONIN I HIGH SENSITIVITY 4.2 pg/mL (<=60.3)
[2024-11-10 16:40] LABS: APPEARANCE,URINE CLEAR (CLEAR); GLUCOSE,URINE NEGATIVE (NEGATIVE); OCCULT BLOOD,URINE NEGATIVE (NEGATIVE)
[2024-11-10 16:45] LABS: AMPHETAMINES SCREEN, URINE NEGATIVE (NEGATIVE); METHADONE SCREEN, URINE NEGATIVE (NEGATIVE); METHAMPHETAMINES SCREEN, URINE NEGATIVE (NEGATIVE); OXYCODONE SCREEN,URINE NEGATIVE (NEGATIVE); PROPOXYPHENE SCREEN,URINE NEGATIVE (NEGATIVE); THC SCREEN,URINE 50 NG/ML NEGATIVE (NEGATIVE)
[2024-11-13 05:06] LABS: ANAPLASMA PHAGOCYTOPHILUM PCR Not Detected; BABESIA MICROTI BY PCR Not Detected; EHRLICHIA CHAFFEENSIS BY PCR Not Detected; EHRLICHIA EWINGII/CANIS BY PCR Not Detected; EHRLICHIA MURIS-LIKE BY PCR Not Detected
== END 2024-11-10 17:12 | disposition home or self-care (01) ==
LOC: JP.ED 14:49
DX: R07.89 Other chest pain (principal); R06.4 Hyperventilation
CPT/HCPCS: 36415; 71045; 71045-26; 80053; 80305-QW; 80307; 81003; 81025; 82803; 83605; 84484; 85025; 85379; 86618; 87426-QW; 87468; 87469; 87484; 87798; 93005; 93010; 99284; 99285